=== PATIENT | female | born 1955 | race Hispanic/Latino ===

== ENCOUNTER 2016-12-01 16:38 | Emergency (ER) | payer MEDICARE ==
[2016-12-02] MEDS ORDERED: TYLENOL #3 PO ONE (01:06)
[2016-12-02] MEDS ORDERED: MOTRIN PO ONE (01:06)
--- NOTE | 2016-12-02 01:08 | Emergency Department Report ---
ED General Adult HPI - General Chief complaint: Dental/Oral Stated complaint: RIGHT SIDE JAW SWOLLEN Time Seen by Provider: 12/02/16 00:52 Source: patient Mode of arrival: Ambulatory Limitations: No Limitations - History of Present Illness Severity scale (0 -10): 4 - Related Data Previous Rx's Medication Instructions Recorded Last Taken Type Aspirin [Aspirin BABY CHEW TAB] 81 mg PO QDAY #30 tab.chew 05/07/14 Unknown Rx HYDROcodone/APAP 10-325 [[place] 1 each PO Q4H PRN #25 tablet 05/07/14 Unknown Rx 10-325 mg TAB] Metoprolol [Lopressor TAB] 25 mg PO BID #60 tablet 05/07/14 Unknown Rx Nicotine [Habitrol] 14 mg TD QDAY #30 patch 05/07/14 Unknown Rx Pantoprazole [Protonix TAB] 40 mg PO BID #60 tablet 05/07/14 Unknown Rx Rosuvastatin (Nf) [Crestor] 20 mg PO QHS #30 tablet 05/07/14 Unknown Rx Ticagrelor [Brilinta] 90 mg PO BID #60 tablet 05/07/14 Unknown Rx Allergies Allergy/AdvReac Type Severity Reaction Status Date / Time No Known Allergies Allergy Verified 05/05/14 08:37 ED Review of Systems ROS: Stated complaint: RIGHT SIDE JAW SWOLLEN Other details as noted in HPI ED Past Medical Hx - Past Medical History Previous Medical History?: Yes Hx COPD: Yes - Surgical History Hx Coronary Stent: Yes Hx Appendectomy: Yes Additional Surgical History: fx repair L arm. TL - Social History Smoking Status: Current Every Day Smoker Substance Use Type: Alcohol - Medications Home Medications: Home Medications Medication Instructions Recorded Confirmed Last Taken Type Aspirin [Aspirin BABY CHEW TAB] 81 mg PO QDAY #30 tab.chew 05/07/14 Unknown Rx HYDROcodone/APAP 10-325 [[place] 1 each PO Q4H PRN #25 tablet 05/07/14 Unknown Rx 10-325 mg TAB] Metoprolol [Lopressor TAB] 25 mg PO BID #60 tablet 05/07/14 Unknown Rx Nicotine [Habitrol] 14 mg TD QDAY #30 patch 05/07/14 Unknown Rx Pantoprazole [Protonix TAB] 40 mg PO BID #60 tablet 05/07/14 Unknown Rx Rosuvastatin (Nf) [Crestor] 20 mg PO QHS #30 tablet 02/24/15 Unknown Rx Ticagrelor [Brilinta] 90 mg PO BID #60 tablet 05/07/14 Unknown Rx ED Physical Exam - General Limitations: No Limitations ED Course Vital Signs 12/01/16 12/01/16 12/01/16 18:50 18:51 23:42 Temperature 98.8 F Pulse Rate 72 84 68 Respiratory 16 18 Rate Blood Pressure 131/88 131/88 117/61 O2 Sat by Pulse 94 100 96 Oximetry Critical care attestation.: If time is entered above; I have spent that time in minutes in the direct care of this critically ill patient, excluding procedure time. ED Disposition Condition: Stable Referrals: PRIMARY CARE, [Primary Care Provider] - 3-5 Days
[2016-12-02] MEDS ORDERED: ZOFRAN ODT ONE (03:23)
[2016-12-02] MEDS ORDERED: ZOFRAN ODT PO ONE (03:25)
[2016-12-02] MEDS ORDERED: NITROSTAT SL ONE (03:28)
[2016-12-02] MEDS ORDERED: REGLAN IV ONE (03:28)
[2016-12-02] MEDS ORDERED: DILAUDID IV ONE (03:29)
[2016-12-02 05:51] LABS: Alanine Aminotransferase 19 units/L (7-56); Albumin 3.8 g/dL (3.9-5); Albumin/Globulin Ratio 1.2 %; Alkaline Phosphatase 89 units/L (35-129); Anion Gap 22 mmol/L; BUN/Creatinine Ratio 28.57; Basophils % (Auto) 0.7 % (0.0-1.8); Blood Urea Nitrogen 20 mg/dL (7-17); Calcium 9.4 mg/dL (8.4-10.2); Carbon Dioxide 21 mmol/L (22-30); Chloride 101.7 mmol/L (98-107); Eosinophils % (Auto) 7.8 % (0.0-4.3); Glucose 107 mg/dL (65-100); Hematocrit 42.5 % (30.3-42.9); Hemoglobin 14.4 gm/dl (10.1-14.3); Mean Corpuscular HGB Conc 34 % (30-34); Mean Corpuscular Hemoglobin 32 pg (28-32); Mean Corpuscular Volume 94 fl (79-97); Platelet Count 213 K/mm3 (140-440); Potassium 4.1 mmol/L (3.6-5.0); Red Blood Count 4.53 M/mm3 (3.65-5.03); Red Cell Distribution Width 13.6 % (13.2-15.2); Sodium 141 mmol/L (137-145); White Blood Count 12.6 K/mm3 (4.5-11.0)
[2016-12-02 05:55] LABS: INR 0.99 (0.87-1.13)
--- NOTE | 2016-12-02 05:55 | Cat Scan Report ---
FINAL REPORT EXAM: CT FACIAL BONES WO CON HISTORY: right facial pain TECHNIQUE: CT images are acquired through the face without contrast. Transaxial , coronal and sagittal reformations are provided. PRIORS: None. FINDINGS: Near complete opacification of the right maxillary sinus without fluid level. There is aggressive appearing permeative destruction of the right maxilla with soft tissue density extending from the right maxillary sinus into the right infratemporal fossa and through the right lateral greater than medial pterygoid plates. The anterior right maxillary sinus wall shows erosive destruction on axial series 3, image 66. Inferior orbital rim is also destroyed in the mid and posterior portions extending to within 1-2 centimeters of the right orbital apex. The retro bulbar fat and extraocular muscles appear unremarkable and both globes demonstrate a normal spherical shape. Moderate mucosal thickening is present in the ethmoid sinuses. Minimal mucosal thickening in the frontal and left maxillary sinus without fluid level. The sphenoid sinus is clear. No carotid dehiscence. The mastoid air cells are clear. The posterior nasopharynx is grossly unremarkable. Nasal bones are intact. Limited evaluation of the brain is remarkable for suggested left temporal/perisylvian encephalomalacia. IMPRESSION: Aggressive appearing destruction of the right lateral maxillary sinus and infraorbital [place] extending through the pterygoid plate and possibly the medial maxillary sinus wall as well is concerning for neoplasm versus infection. ENT consultation is recommended. Suggested left perisylvian/temporal encephalomalacia in the partially imaged brain. Correlation with prior imaging is requested. Consider follow-up as warranted. Dr. Unger discussed findings with Dr. Saul at [id number] [employer] following the examination.
[2016-12-02 05:56] LABS: Partial Thromboplastin Time 29.3 Sec. (24.2-36.6)
--- NOTE | 2016-12-02 06:35 | Emergency Department Report ---
ED General Adult HPI - General Chief complaint: Dental/Oral Stated complaint: RIGHT SIDE JAW SWOLLEN Time Seen by Provider: 12/02/16 00:52 Source: patient Mode of arrival: Ambulatory Limitations: No Limitations - History of Present Illness Initial comments: Patient is a 61-year-old female past medical history of right facial pain and hypertension who presents with right face pain and asthma going on for the last 4 months. Patient states that her pain as an 8 out of 10. Patient states that pain is an achy type pain that radiates to her face. She also states that she has some slight nausea. Nothing makes the pain better or worse. Patient denies having any chest pain or any shortness of breath. Patient was recently at a oral surgeon's office however the oral surgeon did not take Medicaid or Medicare. So she came here patient denies any exacerbation of her pain she states that she would "just like to get it taken care of" patient has no fever no foul smell from mouth or discharge. Severity scale (0 -10): 8 - Related Data Previous Rx's Medication Instructions Recorded Last Taken Type Aspirin [Aspirin BABY CHEW TAB] 81 mg PO QDAY #30 tab.chew 05/07/14 Unknown Rx HYDROcodone/APAP 10-325 [[place] 1 each PO Q4H PRN #25 tablet 05/07/14 Unknown Rx 10-325 mg TAB] Metoprolol [Lopressor TAB] 25 mg PO BID #60 tablet 05/07/14 Unknown Rx Nicotine [Habitrol] 14 mg TD QDAY #30 patch 05/07/14 Unknown Rx Pantoprazole [Protonix TAB] 40 mg PO BID #60 tablet 05/07/14 Unknown Rx Rosuvastatin (Nf) [Crestor] 20 mg PO QHS #30 tablet 05/07/14 Unknown Rx Ticagrelor [Brilinta] 90 mg PO BID #60 tablet 05/07/14 Unknown Rx Amoxicillin/K Clav Tab [Aug[place] 1 each PO Q12HR #14 tablet 12/02/16 Unknown Rx 500 MG TAB] HYDROcodone/APAP 5-325 [[place] 1 each PO Q6HR PRN #13 tablet 12/02/16 Unknown Rx 5/325] Ondansetron [Zofran TAB] 4 mg PO Q8HR PRN #10 tablet 12/02/16 Unknown Rx Allergies Allergy/AdvReac Type Severity Reaction Status Date / Time No Known Allergies Allergy Verified 05/05/14 08:37 ED Review of Systems ROS: Stated complaint: RIGHT SIDE JAW SWOLLEN Other details as noted in HPI Constitutional: denies: chills, fever Eyes: denies: eye pain, eye discharge, vision change ENT: as per HPI, dental pain Respiratory: denies: cough, shortness of breath, wheezing Cardiovascular: denies: chest pain, palpitations Endocrine: no symptoms reported Gastrointestinal: nausea. denies: abdominal pain, diarrhea Genitourinary: denies: urgency, dysuria, discharge Musculoskeletal: denies: back pain, joint swelling, arthralgia Skin: denies: rash, lesions Neurological: denies: headache, weakness, paresthesias Psychiatric: denies: anxiety, depression Hematological/Lymphatic: denies: easy bleeding, easy bruising ED Past Medical Hx - Past Medical History Previous Medical History?: Yes Hx COPD: Yes - Surgical History Hx Coronary Stent: Yes Hx Appendectomy: Yes Additional Surgical History: fx repair L arm. TL - Social History Smoking Status: Current Every Day Smoker Substance Use Type: Alcohol - Medications Home Medications: Home Medications Medication Instructions Recorded Confirmed Last Taken Type Aspirin [Aspirin BABY CHEW TAB] 81 mg PO QDAY #30 tab.chew 05/07/14 Unknown Rx HYDROcodone/APAP 10-325 [[place] 1 each PO Q4H PRN #25 tablet 05/07/14 Unknown Rx 10-325 mg TAB] Metoprolol [Lopressor TAB] 25 mg PO BID #60 tablet 05/07/14 Unknown Rx Nicotine [Habitrol] 14 mg TD QDAY #30 patch 05/07/14 Unknown Rx Pantoprazole [Protonix TAB] 40 mg PO BID #60 tablet 05/07/14 Unknown Rx Rosuvastatin (Nf) [Crestor] 20 mg PO QHS #30 tablet 05/07/14 Unknown Rx Ticagrelor [Brilinta] 90 mg PO BID #60 tablet 05/07/14 Unknown Rx Amoxicillin/K Clav Tab [[place] 1 each PO Q12HR #14 tablet 12/02/16 Unknown Rx 500 MG TAB] HYDROcodone/APAP 5-325 [[place] 1 each PO Q6HR PRN #13 tablet 12/02/16 Unknown Rx 5/325] Ondansetron [Zofran TAB] 4 mg PO Q8HR PRN #10 tablet 12/02/16 Unknown Rx ED Physical Exam - General Limitations: No Limitations General appearance: alert, in no apparent distress - Head Head exam: Present: atraumatic, normocephalic - Eye Eye exam: Present: normal appearance - ENT ENT exam: Present: other (poor dentition tenderness to palpation on right infraorbital area. No swelling or erythema no pus or discharge.) - Neck Neck exam: Present: normal inspection - Respiratory Respiratory exam: Present: normal lung sounds bilaterally. Absent: respiratory distress - Cardiovascular Cardiovascular Exam: Present: regular rate, normal rhythm. Absent: systolic murmur, diastolic murmur, rubs, gallop - GI/Abdominal GI/Abdominal exam: Present: soft, normal bowel sounds - Extremities Exam Extremities exam: Present: normal inspection - Back Exam Back exam: Present: normal inspection - Neurological Exam Neurological exam: Present: alert, oriented X3 - Psychiatric Psychiatric exam: Present: normal affect, normal mood - Skin Skin exam: Present: warm, dry, intact, normal color. Absent: rash ED Course Vital Signs 12/01/16 12/01/16 12/01/16 18:50 18:51 23:42 Temperature 98.8 F Pulse Rate 72 84 68 Respiratory 16 18 Rate Blood Pressure 131/88 131/88 117/61 Blood Pressure [Left] O2 Sat by Pulse 94 100 96 Oximetry 12/02/16 12/02/16 12/02/16 00:58 05:47 05:50 Temperature Pulse Rate 60 Respiratory 16 16 Rate Blood Pressure 108/60 Blood Pressure [Left] O2 Sat by Pulse 100 Oximetry 12/02/16 06:57 Temperature Pulse Rate 60 Respiratory 16 Rate Blood Pressure Blood Pressure 108/60 [Left] O2 Sat by Pulse 95 Oximetry - Consultations Consultation #1: 12/02/16 07:22 Consulted with manager meat Dr. Mcmanus at [facility]. He stated that patient can just follow up as an outpatient with our ENT providers even though they are not rn international. This is been going on for 4 months and from the description the CT there is nothing emergent that needs to occur. ED Medical Decision Making - Lab Data Result diagrams: 12/02/16 05:05 12/02/16 05:05 Lab Results 12/02/16 12/02/16 12/02/16 Range/Units 05:05 05:05 05:05 WBC 12.6 H (4.5-11.0) K/mm3 RBC 4.53 (3.65-5.03) M/mm3 Hgb 14.4 H (10.1-14.3) gm/dl Hct 42.5 (30.3-42.9) % MCV 94 (79-97) fl MCH 32 (28-32) pg MCHC 34 (30-34) % RDW 13.6 (13.2-15.2) % Plt Count 213 (140-440) K/mm3 Lymph % (Auto) 21.8 (13.4-35.0) % [place] % (Auto) 10.2 H (0.0-7.3) % Eos % (Auto) 7.8 H (0.0-4.3) % Baso % (Auto) 0.7 (0.0-1.8) % Lymph # 2.7 (1.2-5.4) K/mm3 [place] # 1.3 H (0.0-0.8) K/mm3 Eos # 1.0 H (0.0-0.4) K/mm3 Baso # 0.1 (0.0-0.1) K/mm3 Seg Neutrophils % 59.5 (40.0-70.0) % Seg Neutrophils # 7.5 (1.8-7.7) K/mm3 PT 13.6 (12.2-14.9) Sec. INR 0.99 (0.87-1.13) APTT 29.3 (24.2-36.6) Sec. Sodium 141 (137-145) mmol/L Potassium 4.1 (3.6-5.0) mmol/L Chloride 101.7 (98-107) mmol/L Carbon Dioxide 21 L (22-30) mmol/L Anion Gap 22 mmol/L BUN 20 H (7-17) mg/dL Creatinine 0.7 (0.7-1.2) mg/dL Estimated GFR > 60 ml/min BUN/Creatinine Ratio 28.57 % Glucose 107 H (65-100) mg/dL Calcium 9.4 (8.4-10.2) mg/dL Total Bilirubin 0.30 (0.1-1.2) mg/dL AST 33 (5-40) units/L ALT 19 (7-56) units/L Alkaline Phosphatase 89 (35-129) units/L Troponin T < 0.010 (0.00-0.029) ng/mL Total Protein 7.0 (6.3-8.2) g/dL Albumin 3.8 L (3.9-5) g/dL Albumin/Globulin Ratio 1.2 % - EKG Data -: EKG Interpreted by Me - EKG Data 12/02/16 07:25 EKG shows sinus bradycardia no axis deviation no ST segment elevations or T- wave inversions. - Radiology Data Radiology results: report reviewed, image reviewed CT facial bones without contrast: Show Crestor. Destruction of the right lateral maxillary sinus and orbital [place] extending to the pterygoid plates possibly medial maxillary sinuses well as concerning for neoplasm versus infection. - Medical Decision Making Chief medical diagnosis: Periapical abscess Differential diagnosis: Right maxillary sinus infection, right maxillary sinus neoplasm CBC, CMP, oral pain medicine, IV antiemetics, EKG, troponin, CT facial bones without contrast and ENT consult. Patient's CT facial bone is concerning for right maxillary sinus infection versus a possible neoplasm. Discussed with ENT at [facility] I will send patient home with Augmentin and some [place] to go home with. Discussed plan with patient and she agrees to try to find some ENT follow-up. Gave patient return precautions. Critical care attestation.: If time is entered above; I have spent that time in minutes in the direct care of this critically ill patient, excluding procedure time. ED Disposition Clinical Impression: Right facial pain, Right maxillary sinusitis, chronic, Erosion of multiple teeth due to deleterious oral practices, Nausea HTN (hypertension) Qualifiers: Hypertension type: unspecified Qualified Code(s): I10 - Essential (primary) hypertension Disposition: TO HOME OR SELFCARE Is pt being admited?: No Does the pt Need Aspirin: No Condition: Stable Instructions: Sinusitis (ED), Temporomandibular Disorder (ED) Prescriptions: Amoxicillin/K Clav Tab [Augmentin 500 MG TAB] 1 each PO Q12HR #14 tablet HYDROcodone/APAP 5-325 [[place] 5/325] 1 each PO Q6HR PRN #13 tablet PRN Reason: Pain Ondansetron [Zofran TAB] 4 mg PO Q8HR PRN #10 tablet PRN Reason: Nausea Referrals: EMMY MUNOZ MD [Referring] - 3-5 Days
[2016-12-02] MEDS ORDERED: NORCO 10/325 PO ONE (06:56)
[2016-12-02] MEDS ORDERED: ZOFRAN IV ONE (06:56)
--- NOTE | 2016-12-02 07:32 | XRay Report ---
AP CHEST: HISTORY: chest pain AP view of the chest demonstrates a normal mediastinal and cardiac contour with clear lungs and normal bony and soft tissue structures. IMPRESSION: Unremarkable AP chest.
[2016-12-02 09:00] VITALS: BP 108/64
== END 2016-12-02 09:07 | disposition home or self-care (01) ==
LOC: ED 16:38
DX: R51 Headache (principal); I10 Essential (primary) hypertension; J32.0 Chronic maxillary sinusitis; R11.0 Nausea; K03.2 Erosion of teeth; J44.9 Chronic obstructive pulmonary disease, unspecified; F17.200 Nicotine dependence, unspecified, uncomplicated; Z98.890 Other specified postprocedural states; Z79.82 Long term (current) use of aspirin
CPT/HCPCS: 36415; 70486; 71010; 80053; 84484; 85025; 85610; 85730; 93005; 93010; 96374; 96375; 99285; J1170; J2405; J2765; Q0162

== ENCOUNTER 2021-01-02 11:46 | Emergency (ER) | payer MEDICARE ==
[2021-01-02 11:59] VITALS: BP 144/76
[2021-01-02] MEDS ORDERED: OXYMETAZOLINE 0.05% NASAL SPRAY NS ONE (13:26)
--- NOTE | 2021-01-02 13:30 | Emergency Department Report ---
ED ENT HPI - General Chief complaint: Nosebleed Stated complaint: NOSEBLEED Time Seen by Provider: 01/02/21 13:06 Source: patient Mode of arrival: Ambulatory Limitations: No Limitations - History of Present Illness Initial comments: 65-year-old female, history of cancer with resection and reconstruction of right face, presents to the ED with nosebleed. Patient reports intermittent nosebleeds over the last 2 weeks. States she has seen her ENT physician, Dr. Bose. States she is currently using ipratropium nasal spray and mupirocin ointment. Patient was initially seen at an urgent care and sent to the ED. Nosebleed has currently resolved with pressure. MD complaint: epistaxis -: week(s) (2) Location: nose Severity: mild Consistency: intermittent Improves with: pressure Worsens with: none Context-Epistaxis: history of similar - Related Data Previous Rx's Medication Instructions Recorded Last Taken Type Aspirin [Aspirin BABY CHEW TAB] 81 mg PO QDAY #30 tab.chew 05/07/14 Unknown Rx HYDROcodone/APAP 10-325 [[place] 1 each PO Q4H PRN #25 tablet 05/07/14 Unknown Rx 10-325 mg TAB] Metoprolol [Lopressor TAB] 25 mg PO BID #60 tablet 05/07/14 Unknown Rx Nicotine [Habitrol] 14 mg TD QDAY #30 patch 05/07/14 Unknown Rx Pantoprazole [Protonix TAB] 40 mg PO BID #60 tablet 05/07/14 Unknown Rx Rosuvastatin (Nf) [Crestor] 20 mg PO QHS #30 tablet 05/07/14 Unknown Rx Ticagrelor [Brilinta] 90 mg PO BID #60 tablet 05/07/14 Unknown Rx Amoxicillin/K Clav Tab [[place] 1 each PO Q12HR #14 tablet 12/02/16 Unknown Rx 500 MG TAB] HYDROcodone/APAP 5-325 [[place] 1 each PO Q6HR PRN #13 tablet 12/02/16 Unknown Rx 5/325] Ondansetron [Zofran TAB] 4 mg PO Q8HR PRN #10 tablet 12/02/16 Unknown Rx Allergies Allergy/AdvReac Type Severity Reaction Status Date / Time No Known Allergies Allergy Verified 01/02/21 11:59 ED Dental HPI - General Chief complaint: Nosebleed Stated complaint: NOSEBLEED Time Seen by Provider: 01/02/21 13:06 Source: patient Mode of arrival: Ambulatory Limitations: No Limitations - Related Data Previous Rx's Medication Instructions Recorded Last Taken Type Aspirin [Aspirin BABY CHEW TAB] 81 mg PO QDAY #30 tab.chew 05/07/14 Unknown Rx HYDROcodone/APAP 10-325 [[place] 1 each PO Q4H PRN #25 tablet 05/07/14 Unknown Rx 10-325 mg TAB] Metoprolol [Lopressor TAB] 25 mg PO BID #60 tablet 05/07/14 Unknown Rx Nicotine [Habitrol] 14 mg TD QDAY #30 patch 05/07/14 Unknown Rx Pantoprazole [Protonix TAB] 40 mg PO BID #60 tablet 05/07/14 Unknown Rx Rosuvastatin (Nf) [Crestor] 20 mg PO QHS #30 tablet 05/07/14 Unknown Rx Ticagrelor [Brilinta] 90 mg PO BID #60 tablet 05/07/14 Unknown Rx Amoxicillin/K Clav Tab [[place]ment[place] 1 each PO Q12HR #14 tablet 12/02/16 Unknown Rx 500 MG TAB] HYDROcodone/APAP 5-325 [[place] 1 each PO Q6HR PRN #13 tablet 12/02/16 Unknown Rx 5/325] Ondansetron [Zofran TAB] 4 mg PO Q8HR PRN #10 tablet 12/02/16 Unknown Rx Allergies Allergy/AdvReac Type Severity Reaction Status Date / Time No Known Allergies Allergy Verified 01/02/21 11:59 ED Review of Systems ROS: Stated complaint: NOSEBLEED Other details as noted in HPI Comment: All other systems reviewed and negative ENT: epistaxis ED Past Medical Hx - Past Medical History Hx COPD: Yes - Surgical History Hx Coronary Stent: Yes Hx Appendectomy: Yes Additional Surgical History: fx repair L arm. TL - Social History Smoking Status: Current Every Day Smoker Substance Use Type: Alcohol - Medications Home Medications: Home Medications Medication Instructions Recorded Confirmed Last Taken Type Aspirin [Aspirin BABY CHEW TAB] 81 mg PO QDAY #30 tab.chew 05/07/14 Unknown Rx HYDROcodone/APAP 10-325 [[place] 1 each PO Q4H PRN #25 tablet 05/07/14 Unknown Rx 10-325 mg TAB] Metoprolol [Lopressor TAB] 25 mg PO BID #60 tablet 05/07/14 Unknown Rx Nicotine [Habitrol] 14 mg TD QDAY #30 patch 05/07/14 Unknown Rx Pantoprazole [Protonix TAB] 40 mg PO BID #60 tablet 05/07/14 Unknown Rx Rosuvastatin (Nf) [Crestor] 20 mg PO QHS #30 tablet 05/07/14 Unknown Rx Ticagrelor [Brilinta] 90 mg PO BID #60 tablet 05/07/14 Unknown Rx Amoxicillin/K Clav Tab [[place] 1 each PO Q12HR #14 tablet 12/02/16 Unknown Rx 500 MG TAB] HYDROcodone/APAP 5-325 [[place] 1 each PO Q6HR PRN #13 tablet 12/02/16 Unknown Rx 5/325] Ondansetron [Zofran TAB] 4 mg PO Q8HR PRN #10 tablet 12/02/16 Unknown Rx ED Physical Exam - General Limitations: No Limitations General appearance: alert, in no apparent distress - Head Head exam: Present: atraumatic, normocephalic, other (Evidence of right facial reconstruction noted) - Eye Eye exam: Present: other (Evidence of right facial reconstruction noted) - ENT ENT exam: Present: mucous membranes moist, other (Dried blood in left nare) - Neck Neck exam: Present: normal inspection - Respiratory Respiratory exam: Present: normal lung sounds bilaterally. Absent: respiratory distress - Cardiovascular Cardiovascular Exam: Present: regular rate, normal rhythm - GI/Abdominal GI/Abdominal exam: Absent: distended - Extremities Exam Extremities exam: Present: normal inspection - Neurological Exam Neurological exam: Present: alert, oriented X3 - Psychiatric Psychiatric exam: Present: normal affect, normal mood - Skin Skin exam: Present: warm, dry, intact, normal color ED Course Vital Signs 01/02/21 01/02/21 11:56 15:19 Temperature 97.9 F 97.2 F L Pulse Rate 61 61 Respiratory 16 18 Rate Blood Pressure 144/76 144/76 [Right] O2 Sat by Pulse 97 99 Oximetry ED Medical Decision Making - Medical Decision Making 65-year-old female with intermittent nosebleed over the last 2 weeks. Currently under the care of ear nose and throat physician. Patient presents with report of nosebleed, onset earlier today. Nosebleed has currently resolved with pressure. Afrin sprayed in the nose. She has no current bleeding at this time. Patient advised to follow-up with her ENT. Return precautions given. - Differential Diagnosis Epistaxis Critical care attestation.: If time is entered above; I have spent that time in minutes in the direct care of this critically ill patient, excluding procedure time. ED Disposition Clinical Impression: Epistaxis Disposition: 01 HOME / SELF CARE / HOMELESS Is pt being admited?: No Condition: Stable Instructions: Nosebleed, [id number] Additional Instructions: Please follow-up with your ear nose and throat doctor soon as possible. Referrals: PRIMARY CARE, [Primary Care Provider] - [facility] Time of Disposition: 13:26
== END 2021-01-02 13:30 | disposition home or self-care (01) ==
LOC: ED 11:46
DX: R04.0 Epistaxis (principal); J44.9 Chronic obstructive pulmonary disease, unspecified; F17.200 Nicotine dependence, unspecified, uncomplicated
CPT/HCPCS: 99283